=== PATIENT | male | born 1995 | race Two or more races ===

== ENCOUNTER 2025-05-07 10:28 | Inpatient (IN) | payer MEDICAID, OTHER ==
[~2025-05-07] VITALS: Ht 175.3 cm; Wt 113.6 kg
--- NOTE | 2025-05-07 10:40 | ECG ---
[facility] Test Date: 2025-05-07 Test Time: 10:36:02 Pat Name: DEAN MARQUEZ CAMACHO Department: [facility] ED Patient ID: [id number] Room: Gender: M Relief Cook: APOORVA : 1995 Requested By: TAMMY SPARKS Order Number: [id number] Reading MD: Tonio Bourgeois Measurements Intervals [place] Rate: 112 P: 66 [place]: 146 QRS: 60 QRSD: 97 T: 190 QT: 353 QTc: 482 Interpretive Statements Sinus tachycardia Right atrial enlargement Repol abnrm, severe global ischemia (LM/MVD) Electronically Signed On 05-07-2025 15:29:52 PST by Tonio Bourgeois Please click the below link to view image of tracing.
[2025-05-07 10:46] VITALS: PULSE 109; RESP 15; O2SAT 96
--- NOTE | 2025-05-07 11:26 | ED.PDOC ---
History of Present Illness HPI Comments 30 y/o morbidly obese M is BIBA for c/c of suspected opioid overdose. Per EMS personnel report, patient was working at a private residence in [facility] when he, suddenly, became apneic and turned blueish-castañeda. Patient was found on scene with residential security guards performing CPR. Pupils were noted to have been pinpoint. Patient was given and responded to 2mg IN [place] prior to ED arrival. At time of assessment, patient denies any known opiate drug use and reports only smoking marijuana, this morning, prior to coming in for work. Denies any further pertinent history. Patient denies any symptoms at this time. Chief Complaint: Overdose Time Seen by MD: 10:30 Reviewed Notes: Nurses Notes, Driver Medic Notes, Medications, Allergies Allergies: Coded Allergies: Penicillins (Verified Allergy, Unknown, 05/07/25) Information Source: Patient, Emergency Med Personnel Mode of Arrival: EMS Severity: Moderate Timing: Hours Duration: Minutes Prehospital treatment: 12 Lead EKG, All Source Collection Manager, CPR, Treatment (2mg IN narcan ) Past Medical History PAST MEDICAL HISTORY: Denies Surgical History: Denies all surgeries Family History Family History: No family hx of Cancer, No family hx of Heart renetta, No family hx of HTN, No family hx ofKidney renetta, No family hx of Liver renetta, No family hx of Lung renetta, No family hx of Stroke, Family hx of DM Social History Smoker: Non-Smoker Alcohol: Denies ETOH Use Drugs: Marijuana Lives In: Home Constitutional: denies: chills, diaphoresis, fatigue, fever, malaise, sweats, weakness, others EENTM: denies: blurred vision, double vision, ear bleeding, ear discharge, ear drainage, ear pain, ear ringing, eye pain, eye redness, hearing loss, mouth pain, mouth swelling, nasal discharge, nose bleeding, nose congestion, nose pain, photophobia, tearing, throat pain, throat swelling, voice changes, others Respiratory: denies: cough, hemoptysis, orthopnea, SOB at rest, shortness of breath, SOB with excertion, stridor, wheezing, others Cardiovascular: denies: chest pain, dizzy spells, diaphoresis, Dyspnea on exertion, edema, irregular heart beat, left arm pain, lightheadedness, palpitations, PND, syncope, others Gastrointestinal: denies: abdomen distended, abdominal pain, blood streaked bowels, constipated, diarrhea, dysphagia, difficulty swallowing, hematemesis, melena, nausea, poor appetite, poor fluid intake, rectal bleeding, rectal pain, vomiting, others Genitourinary: denies: burning, dysuria, flank pain, frequency, hematuria, incontinence, penile discharge, penile sore, pain, testicle pain, testicle swelling, urgency, others Neurological: reports: others (AMS); denies: dizziness, fainting, headache, left sided numbness, left sided weakness, numbness, paresthesia, pre-existing deficit, right sided numbness, right sided weakness, seizure, speech problems, tingling, tremors, weakness Integumetry: denies: bruises, change in color, change in hair/nails, dryness, laceration, lesions, lumps, rash, wounds, others Allergic/Immunocompromised: denies: Difficulty Healing, Frequent Infections, Hives, Itching, others Hematologic/Lymphatic: denies: anemia, blood clots, easy bleeding, easy bruising, swollen glands, others Endocrine: denies: excessive hunger, excessive sweating, excessive thirst, excessive urination, flushing, intolerance to cold, intolerance to heat, unexplained weight gain, unexplained weight loss, others Psychiatric: denies: anxiety, bipolar disorder, depression, hopeless, panic disorder, schizophrenia, sleepless, suicidal, others All Other Systems: Reviewed and Negative Physical Exam General Appearance: Moderate Distress, Obese HEENT: Normal ENT Inspection, Pharynx Normal, TMs Normal Neck: Full Range of Motion, Non-Tender, Normal, Normal Inspection Respiratory: Chest Non-Tender, Lungs Clear, No Accessory Muscle Use, No Respiratory Distress, Normal Breath Sounds Cardiovascular: No Edema, No JVD, No Murmur, No Gallop, Normal Peripheral Pu lses, Tachycardia Breast Exam: Deferred Gastrointestinal: No Organomegaly, Non Tender, No Pulsatile Mass, Normal Bowel Sounds, Soft Genitalia: Deferred Pelvic: Deferred Rectal: Deferred Extremities: No calf tenderness, Normal capillary refill, Normal inspection, Normal range of motion, Non-tender, No pedal edema Musculoskeletal : Apperance: Normal Neurologic: frit coater II-XII nml as Tested, Motor Weakness, Normal Affect, Normal Mood, No Sensory Deficits Cerebellar Function: Unable to Test Reflexes: Normal Skin: Dry, Normal Color, Warm Lymphatic: No Adenopathy Was a procedure done? Was a procedure done?: No EKG EKG : Pulse Rate (adult): 112 [place]: Normal Cardiac Rhythm: ST Block: None Hypertrophy: LAE ST: Normal Differential Dx Considerations may include: opiate overdose, substance abuse, encephalopathy, hypoglycemia, seizures, CVA/TIA, TBI, hypoxia, among others X-Ray, Labs, Meds, VS Vital Signs Date Time Temp Pulse Resp B/P (MAP) Pulse Ox O2 Delivery O2 Flow Rate FiO2 05/07/25 15:35 184/120 05/07/25 15:30 203/127 05/07/25 15:23 198/133 05/07/25 13:44 169/122 05/07/25 13:00 107 25 198/146 (163) 95 05/07/25 11:28 182/117 05/07/25 11:26 112 05/07/25 10:46 109 15 96 Nasal Cannula* 2 28 05/07/25 10:46 97.1 109 15 193/127 (149) 96 97.1 05/07/25 10:29 98.3 107 14 241/149 87 98.3 Lab Test 05/07/25 13:37 05/07/25 12:59 05/07/25 11:15 Range/Units Lactic Acid Level 1.2 0.4-2.0 mmol/L Urine Opiates Screen Neg NEGATIVE Urine Fentanyl Screen Pos NEGATIVE Urine Barbiturates Screen Neg NEGATIVE Urine Phencyclidine Screen Neg NEGATIVE Urine Amphetamines Screen Neg NEGATIVE Urine Benzodiazepines Screen Neg NEGATIVE Urine Cocaine Screen Pos NEGATIVE Urine Cannabinoids Screen Pos NEGATIVE White Blood Count 16.8 H 4.4-10.8 10^3/uL Red Blood Count 5.96 H 4.5-5.90 10^6/uL Hemoglobin 18.3 H 13.5-17.5 g/dL Hematocrit 52.8 41.0-53.0 % Mean Corpuscular Volume 88.6 80.0-100.0 fL Mean Corpuscular Hemoglobin 30.7 28.0-32.0 pg Mean Corpuscular Hemoglobin Concent 34.6 32.0-36.0 g/dL Red Cell Distribution Width 13.3 11.8-14.3 % Platelet Count 352 140-450 10^3/uL Mean Platelet Volume 7.4 6.9-10.8 fL Neutrophils (%) (Auto) 74.5 37.0-80.0 % Lymphocytes (%) (Auto) 21.2 10.0-50.0 % Monocytes (%) (Auto) 3.4 0.0-12.0 % Eosinophils (%) (Auto) 0.7 0.0-7.0 % Basophils (%) (Auto) 0.2 0.0-2.0 % Neutrophils # (Auto) 12.5 H 1.6-8.6 10 ^3/uL Lymphocytes # (Auto) 3.6 0.4-5.4 10 ^3/uL Monocytes # (Auto) 0.6 0-1.3 10 ^3/uL Eosinophils # (Auto) 0.1 0-0.8 10 ^3/uL Basophils # (Auto) 0 0-0.2 10 ^3/uL Nucleated Red Blood Cells 0.3 % Sodium Level 139 136-145 mmol/L Potassium Level 2.8 L 3.5-5.1 mmol/L Chloride Level 101 98-107 mmol/L Carbon Dioxide Level 27 20-31 mmol/L Anion Gap 11 5-15 Blood Urea Nitrogen 10 9-23 mg/dL Creatinine 1.26 0.700-1.30 mg/dL Glomerular Filtration Rate Calc 78 >90 mL/min BUN/Creatinine Ratio 7.9 L 10.0-20.0 Serum Glucose 172 H 74-106 mg/dL Calcium Level 9.4 8.7-10.4 mg/dL Plasma/Serum Blood Alcohol < 3.0 <10 mg/dL Current Medications Medications (Trade) Dose Ordered Sig/[place] Route Start Time Stop Time Status Last Admin Hydralazine HCl (Apresoline Injection) 15 mg ONCE ONCE IV 05/07/25 11:15 05/07/25 11:16 DC 05/07/25 11:28 Hydralazine HCl (Apresoline Injection) 10 mg ONCE ONCE IV 05/07/25 13:30 05/07/25 13:31 DC 05/07/25 13:44 Nicardipine/ Sodium Chloride 200 ml @ 50 mls/hr Q4H IV 05/07/25 15:00 05/07/25 15:23 Ondansetron HCl (Zofran) 4 mg ONCE ONCE IV 05/07/25 15:00 05/07/25 15:01 DC 05/07/25 15:09 PROCEDURE(s): HWOCT - HEAD WITHOUT CONTRAST IMPRESSION: 1. No acute intracranial abnormality. 2. Left maxillary sinus disease. The patient's CBC shows an elevated white blood cell count of 16.8 The rest of the CBC is within normal limits The chemistry panel shows hypokalemia at 2.8 The patient has been somewhat hypertensive so we did give hydralazine 15 mg IV push The patient continued to be somewhat hypertensive so we added another dose of hydralazine The patient remains hypertensive so we are now starting on a nicardipine drip Prior to starting the drip, the patient expressed that he wanted to sign out AMA. We did have a discussion with him about the fact that his blood pressure was significantly elevated as well as the patient had hypokalemia The patient is being given potassium p.o. The urine tox is positive for fentanyl, cocaine and marijuana The patient is being admitted at this time Images Reviewed?: Images reviewed and evaluated by me Time of 1ST Reevaluation: 11:00 Reevaluation 1ST: Unchanged Patient Education/Counseling: Diagnosis, Treatment, Prognosis Family Education/Counseling: Diagnosis, Treatment, Prognosis SEPSIS Sepsis Screen Date sepsis recognized/suspect: May 07, 2025 Time Sepsis recognized/suspect: 1046 Recent Procedure: No On Antibiotic Therapy: No Respiratory Rate >20: No Heart Rate >90: Yes Temp<36 C (96.8 F) or >38.3 C: No SBP <90 or MAP <65 mmHG: No New Acute Mental Status Change: No Is the patient on CPAP, BIPAP,: No Physician Orders All Source Collection Manager (05/07/25 10:34) Pulse Oximetry (05/07/25 10:34) Blood Pressure (05/07/25 10:34) Heplock Iv (05/07/25 10:34) Electrocardigram (05/07/25 10:34) Head Without Contrast (05/07/25 10:34) Blood Culture (05/07/25 13:11) Nicardipine 20mg/200ml (Cardene Iv) (05/07/25 15:00) Vital Signs Date Time Temp Pulse Resp B/P (MAP) Pulse Ox O2 Delivery O2 Flow Rate FiO2 05/07/25 15:35 184/120 05/07/25 15:30 203/127 05/07/25 15:23 198/133 05/07/25 13:44 169/122 05/07/25 13:00 107 25 198/146 (163) 95 05/07/25 11:28 182/117 05/07/25 11:26 112 05/07/25 10:46 109 15 96 Nasal Cannula* 2 28 05/07/25 10:46 97.1 109 15 193/127 (149) 96 97.1 05/07/25 10:29 98.3 107 14 241/149 87 98.3 Laboratory Tests Test 05/07/25 11:15 05/07/25 13:37 White Blood Count 16.8 10^3/uL (4.4-10.8) H Lactic Acid Level 1.2 mmol/L (0.4-2.0) Medications Medications Dose Ordered Sig/[place] Route Start Time Stop Time Status Last Admin Dose Admin Hydralazine HCl 10 mg ONCE ONCE IV 05/07/25 13:30 05/07/25 13:31 DC 05/07/25 13:44 Hydralazine HCl 15 mg ONCE ONCE IV 05/07/25 11:15 05/07/25 11:16 DC 05/07/25 11:28 Nicardipine/ Sodium Chloride 200 ml @ 50 mls/hr Q4H IV 05/07/25 15:00 05/07/25 15:23 Ondansetron HCl 4 mg ONCE ONCE IV 05/07/25 15:00 05/07/25 15:01 DC 05/07/25 15:09 Departure 1 Departure Time of Disposition: 17:27 Impression: Primary Impression: Accelerated hypertension Additional Impressions: Cocaine use Marijuana use Accidental fentanyl overdose Qualified Codes: T40.411A - Poisoning by fentanyl or fentanyl analogs, accidental (unintentional), initial encounter Disposition: ADMITTED INPATIENT Admit to: ICU Condition: Fair Critical Care Note Critical Care Time?: Yes (55 min-critical care time only) Stability Stability form required: Yes Unstable for transfer: ICU, CCU, PCU, JASEN (Intensive VS monitoring), May require CPR (possible rapid decline), ED Physician Assesment (Clinical assesment) Heart Score Heart Score: Heart Score Response (Comments) Value History N/A 0 EKG N/A 0 Age N/A 0 Risk Factors N/A 0 Troponin N/A 0 Total 0 I personally scribed for TAMMY SPARKS MD ([email or web address]) on 05/07/25 at 11:26. Electronically submitted by Luis Howard ([email or web address]). I personally scribed for TAMMY SPARKS MD ([email or web address]) on 05/07/25 at 13:07. Electronically submitted by Luis Howard ([email or web address]). TAMMY SPARKS MD May 07, 2025 11:26
[2025-05-07] MEDS: hydrALAZINE HCL 20 MG/ML VL IV ONE ×2 (11:28→13:44)
[2025-05-07 11:44] LABS: Mean Corpuscular Volume 88.6 fL (80.0-100.0); Nucleated Red Blood Cells % 0.3 %
[2025-05-07 11:48] LABS: Hematocrit 52.8 % (41.0-53.0); Hemoglobin 18.3 g/dL (13.5-17.5); Mean Corpuscular Hemoglobin 30.7 pg (28.0-32.0)
[2025-05-07 11:51] LABS: Anion Gap 11 (5-15); Carbon Dioxide 27 mmol/L (20-31); Chloride 101 mmol/L (98-107); Sodium 139 mmol/L (136-145)
[2025-05-07 11:52] LABS: Calcium 9.4 mg/dL (8.7-10.4)
[2025-05-07 11:53] LABS: Potassium 2.8 mmol/L (3.5-5.1)
[2025-05-07 11:57] LABS: BUN/Creatinine Ratio 7.9 (10.0-20.0); Blood Urea Nitrogen 10 mg/dL (9-23)
[2025-05-07 12:11] LABS: Glucose 172 mg/dL (74-106)
--- NOTE | 2025-05-07 12:46 | DVH ---
EXAM: CT HEAD WITHOUT CONTRAST INDICATION: aloc TECHNIQUE: CT of the head without intravenous contrast. Radiation Dose Information: CT Dose: CTDI volume is 66.21 mGy. Dose-length product is 1304.58 mGy*cm The dose indicators for CT are the volume Computed Tomography (CT) Dose Index (CTDIvol) and the Dose Length Product (DLP), and are measured in units of mGy and mGy-cm, respectively. These indicators are not patient dose, but values generated from the CT scanner acquisition factors. The report includes radiation exposure data for exposures received during this examination. COMPARISON: None FINDINGS: There is no evidence of acute intracranial hemorrhage, extra-axial collection, mass effect, midline shift, herniation or hydrocephalus. The ventricles, sulci and cisterns are age appropriate. The castañeda-white differentiation is intact. Patchy periventricular and subcortical white matter hypoattenuation is nonspecific but may be related to small vessel ischemic disease. Mucosal thickening and/or polyp/retention cysts are seen within the left maxillary sinus. The surrounding soft tissues and osseous structures are unremarkable. IMPRESSION: 1. No acute intracranial abnormality. 2. Left maxillary sinus disease.
[2025-05-07 13:44] LABS: Amphetamine Screen, Urine Neg (NEGATIVE); Barbiturate Scree,Urine Neg (NEGATIVE); Benzodiazephine Screen, Urine Neg (NEGATIVE); Cannabinoid Screen, Urine Pos (NEGATIVE); Cocaine Screen, Urine Pos (NEGATIVE); Opiate Scree,Urine Neg (NEGATIVE); Phencyclidine Screen, Urine Neg (NEGATIVE)
[2025-05-07] MEDS: ONDANSETRON HCL 4 MG/2 ML VIAL IV ONE (15:09)
[2025-05-07] MEDS ORDERED: MORPHINE SULFATE INJ 2 MG/ml SYRG IV PRN (17:00)
[2025-05-07] MEDS ORDERED: DOCUSATE SOD 100 MG CAP PO PRN (17:00)
[2025-05-07] MEDS: hydroCHLOROthiazide 25 MG TAB PO ONE (17:00)
[2025-05-07] MEDS ORDERED: ACETAMINOPHEN 325 MG TAB PO PRN (17:00)
[2025-05-07] MEDS ORDERED: NITROGLYCERIN 0.4 MG SL TAB SL PRN (17:00)
[2025-05-07] MEDS ORDERED: ONDANSETRON HCL 4 MG/2 ML VIAL IV PRN (17:00)
--- NOTE | 2025-05-07 17:32 | DVHHP2 ---
History of Present Illness Reason for Visit: Overdose History of Present Illness Jeff Reis is a 30-year-old male with no know significant past medical history, who was brought to the hospital S/P CPR in the field for overdose. Patient was at work when he went unresponsive. CPR was started and EMS was called. When EMS arrived CPR was continued, Narcan was given and patient became responsive and ROSC was achieved. Patient was brought to the hospital being bagged. Patient remained alert and oriented after arrival to the hospital. He denies having any memory of the event. He remembers being at work, then waking up in the hospital. UDS showed fentanyl, cocaine, and marijuana in his system. Patient states he does smoke marijuana, but denies using cocaine or fentanyl. He does not want the event to be spoken about in front of his family, nor does he want the result of his urine drug screen to be spoken about in front of his family. With family not at bedside, patient still denies using cocaine and fentanyl. Patient states he has not been to see a primary care provider in years. Past Surgical History: None Smoke: No ALCOHOL: none Drugs: Marijuana Lives: with Family Domestic Violence: Neg Review of Systems Constitutional: No: Fever, Chills, Sweats, Weakness, Malaise, Other Eyes: No: Pain, Vision change, Conjunctivae inflammation, Eyelid inflammation, Other, Redness ENT: No: Ear pain, Ear discharge, Nose pain, Nose discharge, Nose congestion, Mouth pain, Mouth swelling, Throat pain, Throat swelling, Other Respiratory: No: Cough, Dry, Shortness of breath, SOB with excertion, Wheezing, Hemoptysis, Pleuritic Pain, Sputum, Wheezing, Other Cardiovascular: No: Chest Pain, Palpitations, Orthopnea, Paroxysmal Noc. Dyspnea, Edema, Lt Headedness, Other Gastrointestinal: No: Nausea, Vomiting, Abdominal Pain, Diarrhea, Constipation, Melena, Hematochezia, Other Genitourinary: No Dysuria, No Frequency, No Incontinence, No Hematuria, No Retention, No Other Musculoskeletal: No: other, neck pain, shoulder pain, arm pain, back pain, hand pain, leg pain, foot pain Skin: No: Rash, Lesions, Jaundice, Bruising, Other Neurological: Other (S/P CPR); No: Weakness, Numbness, Incoordination, Change in speech, Confusion, Seizures Allergies: Coded Allergies: Penicillins (Verified Allergy, Unknown, 05/07/25) Medications Current Medications Medications Dose Ordered Sig/[place] Route Start Time Stop Time Status Last Admin Dose Admin Nicardipine/ Sodium Chloride 200 ml @ 50 mls/hr Q4H IV 05/07/25 15:00 05/07/25 15:23 50 MLS/HR Exam Vital Signs Vital Signs Date Time Temp Pulse Resp B/P (MAP) Pulse Ox O2 Delivery O2 Flow Rate FiO2 05/07/25 15:35 184/120 05/07/25 13:00 107 25 95 05/07/25 10:46 Nasal Cannula* 2 28 05/07/25 10:46 97.1 97.1 General Appearance: Alert, Oriented X3, Cooperative, mild distress HEENT: Atraumatic, PERRLA Respiratory: Clear to auscultation, Normal air movement Cardiovascular: Normal S1, Normal S2, No murmurs, Other (ST) Abdominal: Normal bowel sounds, Soft, No tenderness Extremities: No clubbing, No cyanosis, Normal pulses, No tenderness/swelling, Other (bilateral edema of the hands) Skin: No rashes, No breakdown, No significant lesion Neuro: Normal gait, Normal speech, Strength at 5/5 X4 ext Psych/Mental Status: Mental status NL, Mood NL Labs/Xrays Labs Test 05/07/25 13:37 05/07/25 12:59 05/07/25 11:15 Range/Units Lactic Acid Level 1.2 0.4-2.0 mmol/L Urine Opiates Screen Neg NEGATIVE Urine Fentanyl Screen Pos NEGATIVE Urine Barbiturates Screen Neg NEGATIVE Urine Phencyclidine Screen Neg NEGATIVE Urine Amphetamines Screen Neg NEGATIVE Urine Benzodiazepines Screen Neg NEGATIVE Urine Cocaine Screen Pos NEGATIVE Urine Cannabinoids Screen Pos NEGATIVE White Blood Count 16.8 H 4.4-10.8 10^3/uL Red Blood Count 5.96 H 4.5-5.90 10^6/uL Hemoglobin 18.3 H 13.5-17.5 g/dL Hematocrit 52.8 41.0-53.0 % Mean Corpuscular Volume 88.6 80.0-100.0 fL Mean Corpuscular Hemoglobin 30.7 28.0-32.0 pg Mean Corpuscular Hemoglobin Concent 34.6 32.0-36.0 g/dL Red Cell Distribution Width 13.3 11.8-14.3 % Platelet Count 352 140-450 10^3/uL Mean Platelet Volume 7.4 6.9-10.8 fL Neutrophils (%) (Auto) 74.5 37.0-80.0 % Lymphocytes (%) (Auto) 21.2 10.0-50.0 % Monocytes (%) (Auto) 3.4 0.0-12.0 % Eosinophils (%) (Auto) 0.7 0.0-7.0 % Basophils (%) (Auto) 0.2 0.0-2.0 % Neutrophils # (Auto) 12.5 H 1.6-8.6 10 ^3/uL Lymphocytes # (Auto) 3.6 0.4-5.4 10 ^3/uL Monocytes # (Auto) 0.6 0-1.3 10 ^3/uL Eosinophils # (Auto) 0.1 0-0.8 10 ^3/uL Basophils # (Auto) 0 0-0.2 10 ^3/uL Nucleated Red Blood Cells 0.3 % Sodium Level 139 136-145 mmol/L Potassium Level 2.8 L 3.5-5.1 mmol/L Chloride Level 101 98-107 mmol/L Carbon Dioxide Level 27 20-31 mmol/L Anion Gap 11 5-15 Blood Urea Nitrogen 10 9-23 mg/dL Creatinine 1.26 0.700-1.30 mg/dL Glomerular Filtration Rate Calc 78 >90 mL/min BUN/Creatinine Ratio 7.9 L 10.0-20.0 Serum Glucose 172 H 74-106 mg/dL Calcium Level 9.4 8.7-10.4 mg/dL Plasma/Serum Blood Alcohol < 3.0 <10 mg/dL EXAM: CT HEAD WITHOUT CONTRAST FINDINGS: There is no evidence of acute intracranial hemorrhage, extra-axial collection, mass effect, midline shift, herniation or hydrocephalus. The ventricles, sulci and cisterns are age appropriate. The castañeda-white differentiation is intact. Patchy periventricular and subcortical white matter hypoattenuation is nonspecific but may be related to small vessel ischemic disease. Mucosal thickening and/or polyp/retention cysts are seen within the left maxillary sinus. The surrounding soft tissues and osseous structures are unremarkable. IMPRESSION: 1. No acute intracranial abnormality. 2. Left maxillary sinus disease. SEPSIS Sepsis Screen Date sepsis recognized/suspect: May 07, 2025 Time Sepsis recognized/suspect: 1046 Recent Procedure: No On Antibiotic Therapy: No Respiratory Rate >20: No Heart Rate >90: Yes Temp<36 C (96.8 F) or >38.3 C: No SBP <90 or MAP <65 mmHG: No New Acute Mental Status Change: No Is the patient on CPAP, BIPAP,: No Physician Orders Stave And Bolt Equalizer (05/07/25 10:34) Pulse Oximetry (05/07/25 10:34) Blood Pressure (05/07/25 10:34) Heplock Iv (05/07/25 10:34) Electrocardigram (05/07/25 10:34) Head Without Contrast (05/07/25 10:34) Blood Culture (05/07/25 13:11) Nicardipine 20mg/200ml (Cardene Iv) (05/07/25 15:00) Admit (05/07/25 16:55) Code Status (05/07/25 16:55) 2 Gm Sodium Diet (05/07/25 Dinner) Sodium Chloride Lock (Saline Lock Ns) (05/07/25 22:00) Hydrocodone-Acet 5/325mg Tab ([place] 5/32 (05/07/25 17:00) Ondansetron Hcl (Zofran) (05/07/25 17:00) Docusate Sodium Capsule (Colace Capsule) (05/07/25 17:00) Enoxaparin Sodium (Lovenox) (05/08/25 10:00) Fall Risk Precautions In Place QSHIFT (05/07/25 16:55) Complete Blood Count (05/08/25 04:00) Comprehensive Metabolic Panel (05/08/25 04:00) Echo 2d Mode Cardiac Dop (05/07/25 16:55) Condition: Critical (05/07/25 16:55) Acetaminophen Tablet (Tylenol Tablet) (05/07/25 17:00) Nitroglycerin Sublingual (Ntrostat Subli (05/07/25 17:00) Morphine Sulfate Injection (05/07/25 17:00) Stat Ekg For Chest Pain (05/07/25 16:55) Notify Md Of Changes From Base (05/07/25 16:55) Stretcher Leveler Operator Helper For 24 Hours (05/07/25 16:55) Emergency Dysrhythmia Protocol (05/07/25 16:55) Rhythm Strips Once Every Shift (05/07/25 16:55) Oxygen By Nasal Cannula (05/07/25 16:55) Vital Signs Date Time Temp Pulse Resp B/P (MAP) Pulse Ox O2 Delivery O2 Flow Rate FiO2 05/07/25 15:35 184/120 05/07/25 15:30 203/127 05/07/25 15:23 198/133 05/07/25 13:44 169/122 05/07/25 13:00 107 25 198/146 (163) 95 05/07/25 11:28 182/117 05/07/25 11:26 112 05/07/25 10:46 109 15 96 Nasal Cannula* 2 28 05/07/25 10:46 97.1 109 15 193/127 (149) 96 97.1 05/07/25 10:29 98.3 107 14 241/149 87 98.3 Laboratory Tests Test 05/07/25 11:15 05/07/25 13:37 White Blood Count 16.8 10^3/uL (4.4-10.8) H Lactic Acid Level 1.2 mmol/L (0.4-2.0) Medications Medications Dose Ordered Sig/[place] Route Start Time Stop Time Status Last Admin Dose Admin Hydralazine HCl 10 mg ONCE ONCE IV 05/07/25 13:30 05/07/25 13:31 DC 05/07/25 13:44 10 MG Hydralazine HCl 15 mg ONCE ONCE IV 05/07/25 11:15 05/07/25 11:16 DC 05/07/25 11:28 15 MG Nicardipine/ Sodium Chloride 200 ml @ 50 mls/hr Q4H IV 05/07/25 15:00 05/07/25 15:23 50 MLS/HR Ondansetron HCl 4 mg ONCE ONCE IV 05/07/25 15:00 05/07/25 15:01 DC 05/07/25 15:09 4 MG Assessment/Plan Assessment/Plan Assessment: Overdose of fentanyl, Hypertensive emergency, Polysubstance abuse, Hyperglycemia, Hypokalemia, Plan: Admit to ICU, IV vasodilators, wean off as tolerated. PO antihypertensives, PO potassium, Manage/Monitor electrolytes closely, A1c, ECHO, Consider cardiology consult if symptoms persist, Consider Accu checks if A1c is elevated, Plan discussed with: Patient My Orders Orders - MARINA TONY Procedure Category Date Status Time Admit ADMIT 05/07/25 Transmitted 16:55 Code Status CODE 05/07/25 Transmitted 16:55 2 Gm Sodium Diet DIET 05/07/25 Transmitted Dinner Sodium Chloride Lock PHA 05/07/25 Transmitted (Saline Lock Ns) 22:00 Hydrocodone-Acet PHA 05/07/25 Transmitted 5/325mg Tab ([place] 17:00 Ondansetron Hcl PHA 05/07/25 Transmitted (Zofran) 17:00 Docusate Sodium PHA 05/07/25 Transmitted Capsule (Colace 17:00 Enoxaparin Sodium PHA 05/08/25 Transmitted (Lovenox) 10:00 Fall Risk Precautions [facility] 05/07/[address] 16:55 Complete Blood Count LAB 05/08/25 Verified 04:00 Comprehensive LAB 05/08/25 Verified Metabolic Panel 04:00 Echo 2d Mode Cardiac US 05/07/25 Transmitted DOP 16:55 Condition: Critical [facility] 05/07/25 Transmitted 16:55 Acetaminophen Tablet [facility] 05/07/25 Transmitted (Tylenol Tablet) 17:00 Nitroglycerin PHA 05/07/25 Transmitted Sublingual (Ntrostat 17:00 Morphine Sulfate PHA 05/07/25 Transmitted Injection 17:00 Stat Ekg For Chest [facility] 05/07/25 Transmitted Pain 16:55 Notify Md Of Changes [facility] 05/07/25 Transmitted From Base 16:55 Stretcher Leveler Operator Helper For [facility] 05/07/25 Transmitted 24 Hours 16:55 Emergency Dysrhythmia [facility] 05/07/25 Transmitted Protocol 16:55 Rhythm Strips Once [facility] 05/07/25 Transmitted Every Shift 16:55 Oxygen By Nasal RT 05/07/25 Transmitted Cannula 16:55 Date of Service: May 07, 2025 Billing Provider: MARINA TOYN Common Visit Codes: [id number] INP/OBS CARE (HIGH) MARINA TONY May 07, 2025 17:32
[2025-05-07] MEDS: POTASSIUM CHL 20 Meq TABLET PO ONE (17:54)
--- NOTE | 2025-05-07 18:00 | DVH ---
INDICATION: S/P CPR TECHNIQUE: Frontal view of the chest. COMPARISON: None FINDINGS/IMPRESSION: Mild basilar opacities. Mild prominence of the cardiomediastinal silhouette. No pleural effusion or pneumothorax. No acute osseous abnormality.
[2025-05-07 19:25] VITALS: PULSE 104; RESP 13; O2SAT 98
[2025-05-07] MEDS: SODIUM CHLOR 0.9% PF (SALINE LOCK) 10ML VIAL/SYR IV SCH (21:30)
[2025-05-08] MEDS: HYDROcodone-ACET 5/325MG TAB PO PRN (00:28)
[2025-05-08 07:32] VITALS: PULSE 97; RESP 20; TEMP 97.7; O2SAT 98
[2025-05-08 09:00] VITALS: PULSE 102; RESP 12; O2SAT 97
[2025-05-08 09:11] VITALS: BP 124/76
[2025-05-08] MEDS ORDERED: ENOXAPARIN SOD 40 MG/0.4 ML SYRINGE SC SCH (10:00)
[2025-05-08] MEDS ORDERED: hydroCHLOROthiazide 25 MG TAB PO SCH (10:00)
== END 2025-05-08 09:26 | disposition left against medical advice (07) | DRG 812 ==
LOC: EDBD 10:28 → ER 10:28 → OVERFLOW 16:55
PROVIDERS: ADMIT Nurse Practitioner Acute Care; ATTEND Nurse Practitioner Acute Care
DX: T40.411A Poisoning by fentanyl or fentanyl analogs, accidental (unintentional), initial encounter (principal); I16.1 Hypertensive emergency; E66.01 Morbid (severe) obesity due to excess calories; F14.90 Cocaine use, unspecified, uncomplicated; E87.6 Hypokalemia; R73.9 Hyperglycemia, unspecified; Z68.37 Body mass index [BMI] 37.0-37.9, adult; Z53.29 Procedure and treatment not carried out because of patient's decision for other reasons; I10 Essential (primary) hypertension; Z88.0 Allergy status to penicillin; Y92.89 Other specified places as the place of occurrence of the external cause
CPT/HCPCS: 36415; 70450; 71045; 80048; 80307; 80320; 83036; 83605; 85025; 87040; 93005; 99291; G0378; J2405